=== PATIENT | female | born 1985 | race Caucasian/White ===

== ENCOUNTER 2016-07-22 09:52 | Emergency (ER) | payer OTHER ==
[2016-07-22 10:06] VITALS: BP 130/77; PULSE 60; TEMP 98.2; BMI 32.4
[2016-07-22] MEDS ORDERED: IBUPROFEN 600 MG TABLET (FP) PO ONE ×2 (11:15→11:24)
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
== END 2016-07-22 11:26 | disposition home or self-care (01) ==
LOC: JERFT 09:52
DX: M79.602 Pain in left arm (principal); V53.5XXA Driver of pick-up truck or van injured in collision with car, pick-up truck or van in traffic accident, initial encounter; Y92.414 Local residential or business street as the place of occurrence of the external cause; Y93.89 Activity, other specified; Z98.84 Bariatric surgery status
CPT/HCPCS: 99281-25

== ENCOUNTER 2017-05-06 17:15 | Emergency (ER) | payer OTHER ==
[2017-05-06 17:28] VITALS: BP 141/63; PULSE 67; TEMP 98; BMI 34.1
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
[2017-05-06 18:29] LABS: BASO % 0.6 % (0-2.0); EOS % 0.9 % (0-4.5); HEMATOCRIT 31.2 % (32.4-45.2); HEMOGLOBIN 9.8 GM/dL (10.7-15.3); LYMPH % 35.6 % (8-40); MCH 21.7 pg (25.7-33.7); MCHC 31.3 g/dl (32.0-36.0); MEAN CELL VOLUME 69.5 fl (80-96); MONO % 11.7 % (3.8-10.2); NEUT % 51.2 % (42.8-82.8); PLATELET COUNT 258 K/MM3 (134-434); RDW 17.1 % (11.6-15.6); WHITE BLOOD COUNT 4.9 K/mm3 (4.0-10.0)
[2017-05-06 19:05] LABS: ALBUMIN 4.1 g/dl (3.4-5.0); ALK PHOS 83 U/L (45-117); ANION GAP 7 (8-16); BILIRUBIN,TOTAL 0.4 mg/dL (0.2-1.0); BLOOD UREA NITROGEN 12 mg/dL (7-18); CALCIUM 8.2 mg/dL (8.5-10.1); CHLORIDE 105 mmol/L (98-107); CO2 26 mmol/L (21-32); CREATININE 0.8 mg/dL (0.55-1.02); GLUCOSE,RANDOM 80 mg/dL (74-106); POTASSIUM 3.9 mmol/L (3.5-5.1); SGOT/AST 19 U/L (15-37); SODIUM 138 mmol/L (136-145); TOT PROT 7.6 g/dl (6.4-8.2)
[2017-05-06 19:12] LABS: SGPT/ALT 37 U/L (12-78)
== END 2017-05-06 20:05 | disposition left against medical advice (07) ==
LOC: JER 17:15
DX: R00.2 Palpitations (principal)
CPT/HCPCS: 36415; 80053; 82550; 84484; 84703; 85025; 85379; 99281-25

== ENCOUNTER 2017-09-15 10:03 | Emergency (ER) | payer OTHER ==
[2017-09-15 10:12] VITALS: BP 134/80; PULSE 89; TEMP 99.4; BMI 32.4
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
[2017-09-15 11:10] LABS: EOS % 0.8 % (0-4.5); HEMOGLOBIN 9.9 GM/dl (10.7-15.3)
[2017-09-15 11:13] LABS: BASO % 0.4 % (0-2.0); HEMATOCRIT 30.6 % (32.4-45.2); LYMPH % 20.5 % (8-40); MCH 21.9 pg (25.7-33.7); MCHC 32.2 g/dl (32.0-36.0); MEAN PLT VOLUME 8.3 fl (7.5-11.1); MONO % 7.7 % (3.8-10.2); NEUT % 70.6 % (42.8-82.8); PLATELET COUNT 230 K/MM3 (134-434); RDW 18.9 % (11.6-15.6); WHITE BLOOD COUNT 6.2 K/mm3 (4.0-10.8)
[2017-09-15 11:15] LABS: ADD RBC MORPHOLOGY YES
[2017-09-15 12:25] LABS: ALBUMIN 3.9 g/dl (3.5-5.0); ALK PHOS 65 U/L (32-92); ANION GAP 4 (8-16); BILIRUBIN,TOTAL 0.4 mg/dl (0.2-1.0); BLOOD UREA NITROGEN 16 mg/dl (7-18); CALCIUM 8.7 mg/dl (8.4-10.2); CHLORIDE 106 mmol/L (98-107); CO2 26 mmol/L (22-28); CREATININE 0.8 mg/dl (0.6-1.3); GLUCOSE,RANDOM 97 mg/dl (74-106); SGOT/AST 24 U/L (10-42); SGPT/ALT 22 U/L (10-40); SODIUM 136 mmol/L (136-145); TOT PROT 7.2 g/dl (6.4-8.3)
[2017-09-15 12:35] LABS: ANISOCYTOSIS 2+; OVALOCYTE 1+; TEAR DROP CELLS 1+
--- NOTE | 2017-09-17 13:08 | EKG ---
Test Reason : Blood Pressure : / mmHG Vent. Rate : 088 BPM Atrial Rate : 088 BPM P-R Int : 132 ms QRS Dur : 080 ms QT Int : 352 ms P-R-T Axes : 049 024 047 degrees QTc Int : 425 ms NORMAL SINUS RHYTHM POSSIBLE ANTERIOR INFARCT , AGE UNDETERMINED ABNORMAL ECG NO PREVIOUS ECGS AVAILABLE Confirmed by LILI COOK MD ([id number]) on 09/17/2017 1:08:09 PM Referred By: MD GONSALVES Confirmed By:LILI COOK MD
== END 2017-09-15 12:55 | disposition home or self-care (01) ==
LOC: FER 10:03 → SUPCPDRO 10:03 → FER 12:55
DX: Z04.1 Encounter for examination and observation following transport accident (principal); V47.0XXA Car driver injured in collision with fixed or stationary object in nontraffic accident, initial encounter; Y93.89 Activity, other specified; Y92.410 Unspecified street and highway as the place of occurrence of the external cause; Y99.0 Civilian activity done for income or pay; Z98.84 Bariatric surgery status
CPT/HCPCS: 36415; 80053; 85025; 93005; 99282-25

== ENCOUNTER 2019-06-25 12:36 | Inpatient (IN) | payer OTHER ==
[2019-06-25] MEDS ORDERED: MAG HYDROX/AL HYDROX/SIMETH 30 ML UNIT-DOSE CUP PO PRN (14:47)
[2019-06-25] MEDS ORDERED: ACETAMINOPHEN 325 MG TABLET (FP) PO PRN ×2 (14:47)
[2019-06-25] MEDS ORDERED: MAGNESIUM CITRATE 300 ML BOTTLE PO PRN (14:47)
[2019-06-25] MEDS ORDERED: cloNIDine HCL 0.1 MG TABLET PO PRN (14:47)
[2019-06-25] MEDS ORDERED: MENTHOL/PHENOL 1 EACH UD MM PRN (14:47)
[2019-06-25] MEDS ORDERED: BISMUTH SUBSALICYLATE 262 MG/15 ML BTL PO PRN (14:47)
[2019-06-25] MEDS ORDERED: ONDANSETRON *ODT* 4 MG TABLET SL ONE (14:47)
[2019-06-25] MEDS ORDERED: MAGNESIUM HYDROX 2400MG/30ML ORAL SUSPENSION 30 ML CUP PO PRN (14:47)
[2019-06-25] MEDS ORDERED: METHADONE HCL 10 MG TABLET (FOR DETOX USE ONLY) PO ONE (14:47)
[2019-06-25 15:14] VITALS: BMI 31.6
[2019-06-25] MEDS: PRENATAL VITAMINS W/ FOLIC ACID TABLET (FP) PO SCH (16:15)
[2019-06-25 17:39] LABS: HEMATOCRIT 38.4 % (32.4-45.2); HEMOGLOBIN 12.4 GM/dL (10.7-15.3); MCH 26.9 pg (25.7-33.7); MCHC 32.4 g/dl (32.0-36.0); MEAN CELL VOLUME 83.2 fl (80-96); MEAN PLT VOLUME 9.8 fl (7.5-11.1); PLATELET COUNT 172 K/MM3 (134-434); RBC 4.62 M/mm3 (3.60-5.2); RDW 24.4 % (11.6-15.6); WHITE BLOOD COUNT 3.6 K/mm3 (4.0-10.0)
[2019-06-25 17:49] LABS: ALBUMIN 3.6 g/dl (3.4-5.0); BILIRUBIN,TOTAL 0.4 mg/dL (0.2-1); POTASSIUM 3.9 mmol/L (3.5-5.1)
[2019-06-25] MEDS: hydrOXYzine PAMOATE 25 MG CAPSULE (FP) PO SCH ×2 (18:07→22:12)
[2019-06-25] MEDS: THIAMINE HCL 100 MG TABLET (FP) PO SCH (22:12)
[2019-06-25] MEDS: MELATONIN 5 MG TABLETS PO SCH (22:12)
[2019-06-26] MEDS: hydrOXYzine PAMOATE 25 MG CAPSULE (FP) PO SCH ×5 (06:01→22:12)
[2019-06-26] MEDS ORDERED: METHADONE HCL 10 MG TABLET (FOR DETOX USE ONLY) ONE (09:28)
[2019-06-26] MEDS ORDERED: METHADONE HCL 5 MG TABLET (FOR DETOX USE ONLY) ONE (09:29)
[2019-06-26] MEDS ORDERED: METHADONE (DETOX) 20 MG, METHADONE (DETOX) 5 MG PO ONE (10:00)
[2019-06-26] MEDS: PRENATAL VITAMINS W/ FOLIC ACID TABLET (FP) PO SCH (10:10)
[2019-06-26] MEDS: METHOCARBAMOL 500 MG TABLET PO PRN (13:58)
[2019-06-26] MEDS: MELATONIN 5 MG TABLETS PO SCH (22:12)
[2019-06-26] MEDS: THIAMINE HCL 100 MG TABLET (FP) PO SCH (22:12)
[2019-06-27] MEDS: hydrOXYzine PAMOATE 25 MG CAPSULE (FP) PO SCH ×5 (05:23→22:17)
[2019-06-27] MEDS ORDERED: METHADONE HCL 10 MG TABLET (FOR DETOX USE ONLY) PO ONE (10:00)
[2019-06-27] MEDS: PRENATAL VITAMINS W/ FOLIC ACID TABLET (FP) PO SCH (10:21)
[2019-06-27] MEDS: IBUPROFEN 400 MG TABLET (FP) PO PRN (14:12)
[2019-06-27] MEDS: METHOCARBAMOL 500 MG TABLET PO PRN (14:13)
[2019-06-27] MEDS: THIAMINE HCL 100 MG TABLET (FP) PO SCH (22:17)
[2019-06-27] MEDS: MELATONIN 5 MG TABLETS PO SCH (22:17)
[2019-06-28] MEDS: hydrOXYzine PAMOATE 25 MG CAPSULE (FP) PO SCH ×5 (06:00→21:45)
[2019-06-28] MEDS ORDERED: METHADONE HCL 10 MG TABLET (FOR DETOX USE ONLY) ONE (08:48)
[2019-06-28] MEDS ORDERED: METHADONE HCL 5 MG TABLET (FOR DETOX USE ONLY) ONE (08:48)
[2019-06-28] MEDS ORDERED: METHADONE (DETOX) 10 MG, METHADONE (DETOX) 5 MG PO ONE (10:00)
[2019-06-28] MEDS: PRENATAL VITAMINS W/ FOLIC ACID TABLET (FP) PO SCH (10:12)
[2019-06-28] MEDS: METHOCARBAMOL 500 MG TABLET PO PRN ×2 (10:14→21:46)
[2019-06-28] MEDS ORDERED: LIDOCAINE 5% TOPICAL PATCH TP ONE (11:50)
[2019-06-28] MEDS: MELATONIN 5 MG TABLETS PO SCH (21:45)
[2019-06-28] MEDS: THIAMINE HCL 100 MG TABLET (FP) PO SCH (21:45)
[2019-06-28] MEDS: LIDOCAINE PATCH REMOVAL MC SCH (21:48)
[2019-06-29] MEDS: hydrOXYzine PAMOATE 25 MG CAPSULE (FP) PO SCH ×5 (05:58→21:47)
[2019-06-29] MEDS ORDERED: METHADONE HCL 10 MG TABLET (FOR DETOX USE ONLY) PO ONE (10:00)
[2019-06-29] MEDS: PRENATAL VITAMINS W/ FOLIC ACID TABLET (FP) PO SCH (10:31)
[2019-06-29] MEDS: LIDOCAINE 5% TOPICAL PATCH TP SCH (10:32)
[2019-06-29] MEDS: METHOCARBAMOL 500 MG TABLET PO PRN ×3 (10:32→23:52)
[2019-06-29] MEDS: THIAMINE HCL 100 MG TABLET (FP) PO SCH (21:47)
[2019-06-29] MEDS: MELATONIN 5 MG TABLETS PO SCH (21:47)
[2019-06-29] MEDS: LIDOCAINE PATCH REMOVAL MC SCH (21:53)
[2019-06-30] MEDS ORDERED: METHADONE HCL 5 MG TABLET (FOR DETOX USE ONLY) PO ONE (06:00)
[2019-06-30] MEDS: hydrOXYzine PAMOATE 25 MG CAPSULE (FP) PO SCH ×2 (06:12→09:19)
[2019-06-30] MEDS: METHOCARBAMOL 500 MG TABLET PO PRN (06:14)
[2019-06-30] MEDS: IBUPROFEN 400 MG TABLET (FP) PO PRN (06:15)
[2019-06-30 06:40] VITALS: TEMP 97.9
[2019-06-30] MEDS: LIDOCAINE 5% TOPICAL PATCH TP SCH (09:19)
[2019-06-30] MEDS: PRENATAL VITAMINS W/ FOLIC ACID TABLET (FP) PO SCH (09:19)
[2019-06-30 09:50] VITALS: BP 119/77; PULSE 62
== END 2019-06-30 10:56 | disposition other institution (70) | DRG 773 ==
LOC: YASAS 12:36 → Y3N 15:13 → Y5N 06-28 17:26
PROVIDERS: ADMIT Allergy & Immunology; ATTEND Allergy & Immunology
PROC: HZ2ZZZZ Detoxification Services for Substance Abuse Treatment (ICD-10-PCS; principal; 2019-06-25)
DX: F11.23 Opioid dependence with withdrawal (principal); F12.10 Cannabis abuse, uncomplicated; Z98.84 Bariatric surgery status; Z87.19 Personal history of other diseases of the digestive system; Z86.19 Personal history of other infectious and parasitic diseases; Z87.440 Personal history of urinary (tract) infections; Z98.890 Other specified postprocedural states
CPT/HCPCS: 36415; 80053; 81025; 85027; 86780; Q0162

== ENCOUNTER 2020-10-12 20:49 | Emergency (ER) | payer OTHER ==
[2020-10-12 20:56] VITALS: BP 118/64; PULSE 66; TEMP 98.7; BMI 26.2
== END 2020-10-13 00:15 | disposition home or self-care (01) ==
LOC: JER 20:49 → JERFT 20:49 → JER 10-13 00:15
DX: S01.419A Laceration without foreign body of unspecified cheek and temporomandibular area, initial encounter (principal)
CPT/HCPCS: 99283-25

== ENCOUNTER 2021-06-12 13:23 | Observation (INO) | payer OTHER ==
[2021-06-12] MEDS ORDERED: VANCOMYCIN 1 GM in D5W (PRE-DOCKED) 1,000 MG/250 ML IVPB ONE (15:15)
[2021-06-12] MEDS ORDERED: PIPERACILLIN/TAZOB 3.375 GM 3.375 GM in DEXTROSE 5%-WATER - 50 ML IVPB ONE (15:16)
[2021-06-12] MEDS ORDERED: PIPERACILLIN/TAZOB 3.375 GM 3.375 GM/50 ML BAG IVPB ONE (15:22)
[2021-06-12 16:00] LABS: BASO % 0.4 % (0-2.0); EOS % 0.2 % (0-4.5); HEMATOCRIT 29.2 % (32.4-45.2); LYMPH % 15.1 % (8-40); MCH 21.5 pg (25.7-33.7); MCHC 30.8 g/dl (32.0-36.0); MEAN CELL VOLUME 69.9 fl (80-96); MEAN PLT VOLUME 8.7 fl (7.5-11.1); MONO % 8.4 % (3.8-10.2); NEUT % 75.9 % (42.8-82.8); PLATELET COUNT 203 10^3/uL (134-434); RBC 4.17 M/mm3 (3.60-5.2); RDW 18.5 % (11.6-15.6); WHITE BLOOD COUNT 7.8 K/mm3 (4.0-10.0)
[2021-06-12] MEDS ORDERED: VANCOMYCIN 1 GRAM (PRE-DOCKED) 1,000 MG/250 ML BAG IVPB ONE (16:00)
[2021-06-12 16:13] LABS: EPI CELLS >36 /uL (0-25.1); HCG,QUALITATIVE URINE Negative; HYALINE CASTS 7 /uL (0-3.1); INR 1.16 (0.83-1.09); PH,URINE 5.5 (5.0-8.0); PROTHROMBIN TIME (PATIENT) 13.4 SEC (9.7-13.0); URINE APPEARANCE TURBID; URINE BACTERIA 2127 /uL (0-1359); URINE BILIRUBIN 2+ (NEGATIVE); URINE COLOR DK YELLOW; URINE GLUCOSE (UA) NEGATIVE (NEGATIVE); URINE KETONE TRACE (NEGATIVE); URINE LEUK ESTERASE 2+ (NEGATIVE); URINE NITRITE POSITIVE (NEGATIVE); URINE PROTEIN 2+ (NEGATIVE); URINE WBC 2101 /uL (0-25.8)
[2021-06-12 16:22] LABS: ALBUMIN 3.9 g/dl (3.4-5.0); BLOOD UREA NITROGEN 14.5 mg/dL (7-18); CALCIUM 9.2 mg/dL (8.5-10.1)
[2021-06-12 16:26] LABS: CREATININE 0.8 mg/dL (0.55-1.3)
[2021-06-12 16:27] LABS: BILIRUBIN,TOTAL 0.4 mg/dL (0.2-1); TOT PROT 7.7 g/dl (6.4-8.2)
[2021-06-12 17:48] LABS: ANISOCYTOSIS 1+; MACROCYTOSIS 0
[2021-06-12] MEDS ORDERED: ACETAMINOPHEN 1000 MG/100 ML BAG IVPB ONE (17:59)
[2021-06-12 18:44] LABS: URINE RBC 798 /uL (0-23.9)
[2021-06-12] MEDS ORDERED: ACETAMINOPHEN INJECTION 100 ML IVPB ONE (18:56)
[2021-06-12] MEDS ORDERED: MELATONIN 5 MG TABLETS PO ONE (20:54)
[2021-06-12] MEDS ORDERED: ACETAMINOPHEN 325 MG TABLET (FP) PO PRN (21:00)
[2021-06-12] MEDS ORDERED: MELATONIN 5 MG TABLETS ONE (21:07)
[2021-06-12] MEDS ORDERED: diphenhydrAMINE HCL 25 MG CAPSULE (FP) PO ONE (23:38)
[2021-06-12] MEDS ORDERED: TETANUS AND DIPHTHERIA TOXOID 0.5 ML DISP.SYRIN IM ONE (23:45)
[2021-06-13] MEDS: CEFAZOLIN 2 GM in DEXTROSE 5%-WATER - 50 ML IVPB SCH ×3 (02:13→18:03)
[2021-06-13] MEDS ORDERED: BENZOCAINE/MENTH/CETYLPYRD CL 1 EACH LOZENGE MM PRN (06:21)
[2021-06-13 08:45] LABS: BASO % 0.7 % (0-2.0); EOS % 2.2 % (0-4.5); HEMATOCRIT 25.4 % (32.4-45.2); HEMOGLOBIN 7.7 GM/dL (10.7-15.3); LYMPH % 33.9 % (8-40); MCH 21.2 pg (25.7-33.7); MCHC 30.4 g/dl (32.0-36.0); MEAN CELL VOLUME 69.9 fl (80-96); MEAN PLT VOLUME 8.6 fl (7.5-11.1); MONO % 18.3 % (3.8-10.2); NEUT % 44.9 % (42.8-82.8); PLATELET COUNT 180 10^3/uL (134-434); RBC 3.64 M/mm3 (3.60-5.2); RDW 18.3 % (11.6-15.6); RETICULOCYTES 1.42 % (0.5-1.5); WHITE BLOOD COUNT 4.3 K/mm3 (4.0-10.0)
[2021-06-13 08:55] LABS: CALCIUM 8.4 mg/dL (8.5-10.1)
[2021-06-13 08:56] LABS: ALBUMIN 3.1 g/dl (3.4-5.0); BLOOD UREA NITROGEN 12.4 mg/dL (7-18); MAGNESIUM 2.2 mg/dL (1.8-2.4)
[2021-06-13 08:59] LABS: CREATININE 0.7 mg/dL (0.55-1.3); PHOSPHOROUS 4.5 mg/dL (2.5-4.9)
[2021-06-13 09:01] LABS: BILIRUBIN,TOTAL 0.3 mg/dL (0.2-1); TOT PROT 6.5 g/dl (6.4-8.2)
[2021-06-13] MEDS ORDERED: IRON SUCROSE INJECTION 100 MG in SODIUM CHLORIDE 95 ML IVPB ONE (11:00)
[2021-06-13 16:14] LABS: HEMATOCRIT 30.3 % (32.4-45.2); HEMOGLOBIN 9.3 GM/dL (10.7-15.3); MCH 21.5 pg (25.7-33.7); MCHC 30.6 g/dl (32.0-36.0); MEAN CELL VOLUME 70.2 fl (80-96); MEAN PLT VOLUME 8.3 fl (7.5-11.1); PLATELET COUNT 213 10^3/uL (134-434); RBC 4.32 M/mm3 (3.60-5.2); RDW 18.3 % (11.6-15.6); WHITE BLOOD COUNT 4.5 K/mm3 (4.0-10.0)
[2021-06-14] MEDS: CEFAZOLIN 2 GM in DEXTROSE 5%-WATER - 50 ML IVPB SCH ×3 (00:59→18:39)
[2021-06-14 08:49] LABS: HEMATOCRIT 25.8 % (32.4-45.2); HEMOGLOBIN 7.8 GM/dL (10.7-15.3); MCH 21.4 pg (25.7-33.7); MCHC 30.5 g/dl (32.0-36.0); MEAN CELL VOLUME 70.2 fl (80-96); MEAN PLT VOLUME 8.4 fl (7.5-11.1); PLATELET COUNT 192 10^3/uL (134-434); RBC 3.67 M/mm3 (3.60-5.2); RDW 18.3 % (11.6-15.6); WHITE BLOOD COUNT 4.1 K/mm3 (4.0-10.0)
[2021-06-14] MEDS ORDERED: DOCUSATE SODIUM 100 MG CAPSULE (FP) PO ONE (11:30)
[2021-06-14] MEDS ORDERED: SENNOSIDES 8.6MG TABLET (FP) PO ONE (11:30)
[2021-06-14] MEDS ORDERED: POLYETHYLENE GLYCOL (HEALTHYLAX) 3350 17 GM PACKET PO ONE (11:30)
[2021-06-14 12:09] VITALS: BMI 24.7
[2021-06-14] MEDS ORDERED: IRON SUCROSE INJECTION 100 MG in SODIUM CHLORIDE 95 ML IVPB ONE (12:45)
[2021-06-14] MEDS ORDERED: MELATONIN 5 MG TABLETS PO SCH (22:00)
[2021-06-15] MEDS: CEFAZOLIN 2 GM in DEXTROSE 5%-WATER - 50 ML IVPB SCH ×2 (01:02→09:56)
[2021-06-15] MEDS ORDERED: MULTIVITAMINS (DAILY MVI) TABLET (FP) PO SCH (10:00)
[2021-06-15 11:49] VITALS: BP 106/67; PULSE 79; TEMP 98.3
== END 2021-06-15 14:00 | disposition home or self-care (01) ==
LOC: JER 13:23 → JERBED 18:52 → J8W 21:24
PROVIDERS: ADMIT Hospitalist
PROC: 3E03329 Introduction of Other Anti-infective into Peripheral Vein, Percutaneous Approach (ICD-10-PCS; principal; 2021-06-12)
PROC: 3E033NZ Introduction of Analgesics, Hypnotics, Sedatives into Peripheral Vein, Percutaneous Approach (ICD-10-PCS; 2021-06-12)
PROC: 3E033GC Introduction of Other Therapeutic Substance into Peripheral Vein, Percutaneous Approach (ICD-10-PCS; 2021-06-12)
PROC: 3E0234Z Introduction of Serum, Toxoid and Vaccine into Muscle, Percutaneous Approach (ICD-10-PCS; 2021-06-12)
DX: L03.011 Cellulitis of right finger (principal); U07.1 COVID-19; D64.9 Anemia, unspecified
CPT/HCPCS: 36415; 73130-TC-RT-FY; 80053; 81003; 82272; 82728; 83540; 83550; 83735; 84100; 84703; 85025; 85027; 85045; 85610; 87040; 90471; 96365; 96366; 96367; 96375; 99285-25; C9803-CS; G0378; J1756; U0003; U0005

== ENCOUNTER 2021-11-05 17:18 | Emergency (ER) | payer OTHER ==
[2021-11-05 17:45] VITALS: BP 95/72; PULSE 86; RESP 18; TEMP 100.2; BMI 23.3
== END 2021-11-05 19:01 | disposition home or self-care (01) ==
LOC: JER 17:18
DX: Z20.822 Contact with and (suspected) exposure to COVID-19 (principal)
CPT/HCPCS: 99283-25; C9803-CS; U0003; U0005

== ENCOUNTER 2022-02-04 13:49 | Emergency (ER) | payer OTHER ==
[2022-02-04 14:43] VITALS: BP 127/72; PULSE 85; RESP 16; TEMP 98.4; BMI 24.1
[2022-02-04] MEDS ORDERED: ACETAMINOPHEN 1000 MG/100 ML BAG IVPB ONE (17:34)
[2022-02-04] MEDS ORDERED: LACTATED RINGERS SOLUTION 1000 ML INFUS.BAG IV ONE (17:34)
[2022-02-04] MEDS ORDERED: ACETAMINOPHEN INJECTION 100 ML IVPB ONE (18:06)
[2022-02-04 18:29] LABS: URINE APPEARANCE CLEAR; URINE BILIRUBIN NEGATIVE (NEGATIVE); URINE COLOR YELLOW; URINE GLUCOSE (UA) NEGATIVE (NEGATIVE); URINE KETONE NEGATIVE (NEGATIVE); URINE LEUK ESTERASE NEGATIVE (NEGATIVE); URINE NITRITE NEGATIVE (NEGATIVE); URINE PROTEIN NEGATIVE (NEGATIVE)
[2022-02-04 18:36] LABS: INR 0.98 (0.83-1.09); PROTHROMBIN TIME (PATIENT) 11.3 SEC (9.7-13.0)
[2022-02-04 18:38] LABS: ACTIVATED PTT 30.2 SECONDS (25.2-36.5)
[2022-02-04 18:39] LABS: BASO % 0.6 % (0-2.0); EOS % 1.1 % (0-4.5); HEMATOCRIT 28.1 % (32.4-45.2); HEMOGLOBIN 8.8 GM/dL (10.7-15.3); LYMPH % 27.3 % (8-40); MCHC 31.2 g/dl (32.0-36.0); MEAN CELL VOLUME 73.7 fl (80-96); MEAN PLT VOLUME 8.1 fl (7.5-11.1); MONO % 12.9 % (3.8-10.2); NEUT % 58.1 % (42.8-82.8); PLATELET COUNT 675 10^3/uL (134-434); RBC 3.82 M/mm3 (3.60-5.2); RDW 20.5 % (11.6-15.6)
[2022-02-04 18:51] LABS: ALBUMIN 3.4 g/dl (3.4-5.0); CALCIUM 8.5 mg/dL (8.5-10.1)
[2022-02-04 18:54] LABS: CREATININE 0.9 mg/dL (0.55-1.3)
[2022-02-04 18:56] LABS: BILIRUBIN,TOTAL 0.2 mg/dL (0.2-1); TOT PROT 7.5 g/dl (6.4-8.2)
[2022-02-04 20:07] LABS: ANISOCYTOSIS 1+; MACROCYTOSIS 0; PLATELET ESTIMATE INCREASED
== END 2022-02-04 20:58 | disposition home or self-care (01) ==
LOC: JER 13:49
PROC: 3E0333Z Introduction of Anti-inflammatory into Peripheral Vein, Percutaneous Approach (ICD-10-PCS; principal; 2022-02-04)
DX: R10.11 Right upper quadrant pain (principal)
CPT/HCPCS: 36415; 71045-TC-FY; 76705-TC; 80053; 81003; 83690; 84703; 85025; 85610; 85730; 87086; 93005; 93010; 99285-25

== ENCOUNTER 2022-04-15 20:25 | Inpatient (IN) | payer OTHER ==
[2022-04-15 21:59] VITALS: BMI 27.4
[2022-04-15] MEDS ORDERED: IBUPROFEN 400 MG TABLET (FP) PO PRN (23:48)
[2022-04-15] MEDS ORDERED: POLYETHYLENE GLYCOL (HEALTHYLAX) 3350 17 GM PACKET PO PRN (23:48)
[2022-04-15] MEDS ORDERED: NALOXONE HCL (KLOXXADO) 8 MG SPRAY NS PRN (23:48)
[2022-04-15] MEDS ORDERED: methaDONE HCL 10 MG TABLET (FOR DETOX USE ONLY) PO ONE (23:48)
[2022-04-15] MEDS ORDERED: IBUPROFEN 600 MG TABLET (FP) PO PRN (23:48)
[2022-04-15] MEDS ORDERED: MAGNESIUM HYDROX 2400MG/30ML ORAL SUSPENSION 30 ML CUP PO PRN (23:48)
[2022-04-15] MEDS ORDERED: ACETAMINOPHEN 325 MG TABLET (FP) PO PRN (23:48)
[2022-04-15] MEDS ORDERED: cloNIDine HCL 0.1 MG TABLET PO PRN (23:48)
[2022-04-15] MEDS ORDERED: LOPERAMIDE HCL 2 MG CAPSULE PO PRN (23:48)
[2022-04-15] MEDS ORDERED: MAG HYDROX/AL HYDROX/SIMETH 30 ML UNIT-DOSE CUP PO PRN (23:48)
[2022-04-15] MEDS ORDERED: BISMUTH SUBSALICYLATE 524 MG/30 ML PO PRN (23:48)
[2022-04-15] MEDS ORDERED: DICYCLOMINE HCL 10 MG CAPSULE PO PRN (23:48)
[2022-04-15] MEDS ORDERED: BENZOCAINE/MENTHOL (CHLORASEPTIC ) LOZENGE MM PRN (23:48)
[2022-04-15] MEDS ORDERED: ONDANSETRON *ODT* 4 MG TABLET SL PRN (23:48)
[2022-04-16] MEDS ORDERED: methaDONE HCL 10 MG TABLET PO ONE (02:12)
[2022-04-16] MEDS: METHOCARBAMOL 500 MG TABLET PO PRN ×3 (02:23→22:15)
[2022-04-16] MEDS: ACETAMINOPHEN 325 MG TABLET (FP) PO PRN (02:27)
[2022-04-16] MEDS: PRENATAL VITAMINS W/ FOLIC ACID TABLET (FP) PO SCH (09:49)
[2022-04-16] MEDS: FERROUS SO4 325 MG TABLET (FP) PO SCH (09:53)
[2022-04-16 11:27] LABS: HEMATOCRIT 27.1 % (32.4-45.2); HEMOGLOBIN 8.1 GM/dL (10.7-15.3); MCH 20.6 pg (25.7-33.7); MCHC 29.8 g/dl (32.0-36.0); MEAN CELL VOLUME 69.2 fl (80-96); MEAN PLT VOLUME 9.4 fl (7.5-11.1); PLATELET COUNT 155 10^3/uL (134-434); RBC 3.92 M/mm3 (3.60-5.2); RDW 19.9 % (11.6-15.6); WHITE BLOOD COUNT 4.1 K/mm3 (4.0-10.0)
[2022-04-16 12:49] LABS: ALBUMIN 3.6 g/dl (3.4-5.0); BLOOD UREA NITROGEN 5.1 mg/dL (7-18); CALCIUM 8.5 mg/dL (8.5-10.1)
[2022-04-16 12:52] LABS: CREATININE 0.8 mg/dL (0.55-1.3)
[2022-04-16 12:53] LABS: BILIRUBIN,TOTAL 0.3 mg/dL (0.2-1); TOT PROT 7.4 g/dl (6.4-8.2)
[2022-04-16 13:25] LABS: HIV INTERPRETATION NEGATIVE (NEGATIVE)
[2022-04-16] MEDS: traZODone HCL 50 MG TABLET (FP) PO SCH (22:15)
[2022-04-16] MEDS: MELATONIN 5 MG TABLETS PO SCH (22:15)
[2022-04-16] MEDS: THIAMINE HCL 100 MG TABLET (FP) PO SCH (22:15)
[2022-04-17] MEDS: METHOCARBAMOL 500 MG TABLET PO PRN ×2 (08:32→17:46)
[2022-04-17] MEDS: ACETAMINOPHEN 325 MG TABLET (FP) PO PRN (08:32)
[2022-04-17] MEDS: PRENATAL VITAMINS W/ FOLIC ACID TABLET (FP) PO SCH (09:55)
[2022-04-17] MEDS: FERROUS SO4 325 MG TABLET (FP) PO SCH (09:55)
[2022-04-17] MEDS ORDERED: methaDONE HCL 10 MG TABLET (FOR DETOX USE ONLY) PO ONE (10:00)
[2022-04-17] MEDS: MELATONIN 5 MG TABLETS PO SCH (22:17)
[2022-04-17] MEDS: traZODone HCL 50 MG TABLET (FP) PO SCH (22:17)
[2022-04-17] MEDS: THIAMINE HCL 100 MG TABLET (FP) PO SCH (22:18)
[2022-04-18] MEDS: FERROUS SO4 325 MG TABLET (FP) PO SCH (10:41)
[2022-04-18] MEDS: PRENATAL VITAMINS W/ FOLIC ACID TABLET (FP) PO SCH (10:41)
[2022-04-18] MEDS: MELATONIN 5 MG TABLETS PO SCH (22:29)
[2022-04-18] MEDS: METHOCARBAMOL 500 MG TABLET PO PRN (22:29)
[2022-04-18] MEDS: traZODone HCL 50 MG TABLET (FP) PO SCH (22:29)
[2022-04-18] MEDS: THIAMINE HCL 100 MG TABLET (FP) PO SCH (22:29)
[2022-04-19 06:51] VITALS: RESP 16; TEMP 98
[2022-04-19] MEDS: FERROUS SO4 325 MG TABLET (FP) PO SCH (09:47)
[2022-04-19] MEDS: PRENATAL VITAMINS W/ FOLIC ACID TABLET (FP) PO SCH (09:47)
[2022-04-19 09:52] VITALS: BP 125/64; PULSE 83
[2022-04-19] MEDS ORDERED: methaDONE HCL 10 MG TABLET (FOR DETOX USE ONLY) PO ONE (10:00)
== END 2022-04-19 10:06 | disposition home or self-care (01) | DRG 773 ==
LOC: YASAS 20:25 → Y3N 04-16 01:58
PROVIDERS: ADMIT Allergy & Immunology; ATTEND Family Medicine
PROC: HZ2ZZZZ Detoxification Services for Substance Abuse Treatment (ICD-10-PCS; principal; 2022-04-16)
DX: F11.23 Opioid dependence with withdrawal (principal); F12.20 Cannabis dependence, uncomplicated; F41.9 Anxiety disorder, unspecified; F43.10 Post-traumatic stress disorder, unspecified; D50.8 Other iron deficiency anemias; G47.00 Insomnia, unspecified; K64.9 Unspecified hemorrhoids; M54.50 Low back pain, unspecified; G89.29 Other chronic pain; Z91.410 Personal history of adult physical and sexual abuse; Z98.84 Bariatric surgery status
CPT/HCPCS: 36415; 80053; 81025; 85027; 86780; 87389; 93005; 93010; C9803-CS; U0003; U0005

== ENCOUNTER 2022-08-23 19:10 | Observation (INO) | payer OTHER ==
[2022-08-23 19:23] VITALS: BMI 27.9
[2022-08-23 22:15] LABS: BASO % 0.8 % (0-2.0); EOS % 2.2 % (0-4.5); LYMPH % 53.1 % (8-40); MCHC 29.6 g/dl (32.0-36.0); MEAN CELL VOLUME 71.1 fl (80-96); MEAN PLT VOLUME 6.7 fl (7.5-11.1); NEUT % 30.9 % (42.8-82.8); PLATELET COUNT 222 10^3/uL (134-434); RBC 3.24 M/mm3 (3.60-5.2); RDW 22.5 % (11.6-15.6); WHITE BLOOD COUNT 3.4 K/mm3 (4.0-10.0)
[2022-08-23 22:18] LABS: HEMOGLOBIN 6.8 GM/dL (10.7-15.3)
[2022-08-23 22:21] LABS: INR 1.03 (0.83-1.09); PROTHROMBIN TIME (PATIENT) 11.9 SEC (9.7-13.0)
[2022-08-23 22:33] LABS: CHLORIDE 110 mmol/L (98-107); POTASSIUM 4.1 mmol/L (3.5-5.1); SODIUM 139 mmol/L (136-145)
[2022-08-23 22:35] LABS: ALBUMIN 3.6 g/dl (3.4-5.0); ANION GAP 4 MMOL/L (8-16); CALCIUM 8.4 mg/dL (8.5-10.1); CO2 24 mmol/L (21-32); GLUCOSE,RANDOM 86 mg/dL (74-106)
[2022-08-23 22:36] LABS: BLOOD UREA NITROGEN 9.5 mg/dL (7-18)
[2022-08-23 22:38] LABS: SGPT/ALT 22 U/L (13-61)
[2022-08-23 22:39] LABS: CREATININE 0.8 mg/dL (0.55-1.3); SGOT/AST 18 U/L (15-37)
[2022-08-23 22:40] LABS: BILIRUBIN,TOTAL 0.2 mg/dL (0.2-1); TOT PROT 7.3 g/dl (6.4-8.2)
[2022-08-23 22:41] LABS: ALK PHOS 75 U/L (45-117)
[2022-08-23 22:56] LABS: ANISOCYTOSIS 3+; MACROCYTOSIS 0; TEAR DROP CELLS 1+
[2022-08-24 00:18] LABS: ERYTHROCYTE SEDIMENTATION RATE 36 mm/hr (0-20)
[2022-08-24] MEDS ORDERED: SODIUM CHLORIDE 1,000 ML IV SCH (01:15)
[2022-08-24 01:51] LABS: IRON SERUM 12 ug/dL (50-175)
[2022-08-24 01:53] LABS: TOTAL IRON BINDING CAPACITY 490 ug/dL (250-450)
[2022-08-24 08:27] LABS: INR 1.1 (0.83-1.09); PROTHROMBIN TIME (PATIENT) 12.7 SEC (9.7-13.0)
[2022-08-24 08:35] LABS: CALCIUM 8.2 mg/dL (8.5-10.1)
[2022-08-24 08:36] LABS: ALBUMIN 3.1 g/dl (3.4-5.0); MAGNESIUM 2.3 mg/dL (1.8-2.4)
[2022-08-24 08:41] LABS: CREATININE 0.8 mg/dL (0.55-1.3); PHOSPHOROUS 3.9 mg/dL (2.5-4.9); TOT PROT 6.1 g/dl (6.4-8.2)
[2022-08-24 08:43] LABS: BILIRUBIN,TOTAL 0.5 mg/dL (0.2-1)
[2022-08-24 08:51] LABS: HEMATOCRIT 22.1 % (32.4-45.2); MCHC 30.8 g/dl (32.0-36.0); MEAN CELL VOLUME 71.5 fl (80-96); MEAN PLT VOLUME 7.9 fl (7.5-11.1); PLATELET COUNT 188 10^3/uL (134-434); RDW 22.5 % (11.6-15.6)
[2022-08-24 09:03] LABS: HEMOGLOBIN 6.8 GM/dL (10.7-15.3)
[2022-08-24] MEDS: PANTOPRAZOLE 40 MG TABLET PO SCH (12:03)
[2022-08-24] MEDS: BUPRENORPHINE/NALOXONE 8 MG/2 MG FILM PACKET SL SCH ×2 (12:03→21:25)
[2022-08-24 19:50] VITALS: RESP 16
[2022-08-24 22:05] LABS: PH,URINE 6.5 (5.0-8.0); URINE APPEARANCE CLEAR; URINE BILIRUBIN NEGATIVE (NEGATIVE); URINE COLOR YELLOW; URINE GLUCOSE (UA) NEGATIVE (NEGATIVE); URINE KETONE NEGATIVE (NEGATIVE); URINE LEUK ESTERASE NEGATIVE (NEGATIVE); URINE NITRITE NEGATIVE (NEGATIVE); URINE PROTEIN NEGATIVE (NEGATIVE); URINE UROBILINOGEN 0.2 mg/dL (0.2-1.0)
[2022-08-25] MEDS ORDERED: MELATONIN 5 MG TABLETS PO ONE (00:54)
[2022-08-25] MEDS ORDERED: METHOCARBAMOL 500 MG TABLET PO ONE (00:59)
[2022-08-25 09:37] LABS: BASO % 0.3 % (0-2.0); EOS % 0.1 % (0-4.5); HEMATOCRIT 29.3 % (32.4-45.2); HEMOGLOBIN 9.4 GM/dL (10.7-15.3); LYMPH % 24.3 % (8-40); MCH 23.1 pg (25.7-33.7); MCHC 31.9 g/dl (32.0-36.0); MEAN CELL VOLUME 72.5 fl (80-96); MEAN PLT VOLUME 8.3 fl (7.5-11.1); MONO % 7.4 % (3.8-10.2); NEUT % 67.9 % (42.8-82.8); PLATELET COUNT 189 10^3/uL (134-434); RBC 4.04 M/mm3 (3.60-5.2); RDW 22.9 % (11.6-15.6); WHITE BLOOD COUNT 5.3 K/mm3 (4.0-10.0)
[2022-08-25] MEDS: BUPRENORPHINE/NALOXONE 8 MG/2 MG FILM PACKET SL SCH (10:02)
[2022-08-25] MEDS: PANTOPRAZOLE 40 MG TABLET PO SCH (10:05)
[2022-08-25 10:07] LABS: POTASSIUM 3.9 mmol/L (3.5-5.1)
[2022-08-25 10:09] LABS: ALBUMIN 3.7 g/dl (3.4-5.0); BLOOD UREA NITROGEN 7.8 mg/dL (7-18); CALCIUM 8.7 mg/dL (8.5-10.1)
[2022-08-25 10:12] LABS: CREATININE 0.7 mg/dL (0.55-1.3)
[2022-08-25 10:14] LABS: BILIRUBIN,TOTAL 0.3 mg/dL (0.2-1); TOT PROT 7.6 g/dl (6.4-8.2)
[2022-08-25 11:25] VITALS: BP 170/75; PULSE 92; TEMP 98.5
== END 2022-08-25 13:15 | disposition home or self-care (01) ==
LOC: JER 19:10 → JERBED 22:32 → J5S 08-24 03:36
PROVIDERS: ADMIT Internal Medicine
PROC: 3E0337Z Introduction of Electrolytic and Water Balance Substance into Peripheral Vein, Percutaneous Approach (ICD-10-PCS; principal; 2022-08-23)
DX: R22.43 Localized swelling, mass and lump, lower limb, bilateral (principal); D50.8 Other iron deficiency anemias; Z98.84 Bariatric surgery status; M54.59 Other low back pain; G89.29 Other chronic pain; Z86.16 Personal history of COVID-19; F11.90 Opioid use, unspecified, uncomplicated
CPT/HCPCS: 0241U-QW; 36415; 36430; 73700-TC-RT; 74176-TC; 76830-TC; 80053; 81003; 82550; 82728; 83540; 83550; 83735; 84100; 84466; 84703; 85025; 85027; 85610; 85651; 85730; 86140; 86304; 86850; 86900; 86901; 86922; 87086; 93971-TC; 99285-25; G0378; P9058

== ENCOUNTER 2022-12-05 12:04 | Emergency (ER) | payer OTHER ==
[2022-12-05 12:10] VITALS: BP 125/69; PULSE 64; RESP 18; TEMP 98.5; BMI 29.1
[2022-12-05] MEDS ORDERED: SODIUM CHLORIDE 0.9% 500 ML INFUS.BAG IV ONE (13:07)
[2022-12-05] MEDS ORDERED: cloNIDine HCL 0.1 MG TABLET PO ONE (13:07)
[2022-12-05] MEDS ORDERED: cloNIDine HCL 0.1 MG TABLET ONE (13:17)
[2022-12-05 14:00] LABS: URINE APPEARANCE CLEAR; URINE BILIRUBIN NEGATIVE (NEGATIVE); URINE COLOR YELLOW; URINE GLUCOSE (UA) NEGATIVE (NEGATIVE); URINE KETONE NEGATIVE (NEGATIVE); URINE LEUK ESTERASE NEGATIVE (NEGATIVE); URINE NITRITE NEGATIVE (NEGATIVE); URINE PROTEIN NEGATIVE (NEGATIVE)
[2022-12-05 14:05] LABS: BASO % 0.4 % (0-2.0); HEMATOCRIT 35.1 % (32.4-45.2); HEMOGLOBIN 10.5 GM/dL (10.7-15.3); MCHC 29.9 g/dl (32.0-36.0); MEAN CELL VOLUME 73.7 fl (80-96); MEAN PLT VOLUME 9.4 fl (7.5-11.1); MONO % 5.2 % (3.8-10.2); NEUT % 71.4 % (42.8-82.8); PLATELET COUNT 277 10^3/uL (134-434); RBC 4.76 M/mm3 (3.60-5.2); RDW 19.1 % (11.6-15.6)
[2022-12-05 14:27] LABS: POTASSIUM 4.1 mmol/L (3.5-5.1)
[2022-12-05 14:29] LABS: ALBUMIN 4.3 g/dl (3.4-5.0); ANISOCYTOSIS 3+; BLOOD UREA NITROGEN 3.4 mg/dL (7-18); MACROCYTOSIS 0
[2022-12-05 14:33] LABS: CREATININE 0.9 mg/dL (0.55-1.3)
[2022-12-05 14:34] LABS: BILIRUBIN,TOTAL 0.5 mg/dL (0.2-1); TOT PROT 8.5 g/dl (6.4-8.2)
[2022-12-05 14:49] LABS: CALCIUM 8.9 mg/dL (8.5-10.1)
[2022-12-05] MEDS ORDERED: diazePAM 5 MG TABLET PO ONE (14:52)
[2022-12-05] MEDS ORDERED: diazePAM 5 MG TABLET ONE (15:14)
== END 2022-12-05 15:35 | disposition home or self-care (01) ==
LOC: JER 12:04
DX: F11.93 Opioid use, unspecified with withdrawal (principal)
CPT/HCPCS: 36415; 80053; 81003; 84703; 85025; 99284-25

== ENCOUNTER 2023-04-01 16:44 | Emergency (ER) | payer OTHER ==
[2023-04-01] MEDS ORDERED: NAPROXEN 375 MG TABLET PO ONE (17:32)
[2023-04-01] MEDS ORDERED: NAPROXEN 375 MG TABLET ONE (17:38)
[2023-04-01 17:41] VITALS: BP 141/72; PULSE 73; RESP 17; TEMP 98.4; BMI 25.7
== END 2023-04-01 18:45 | disposition home or self-care (01) ==
LOC: FER 16:44
DX: M25.511 Pain in right shoulder (principal); M25.562 Pain in left knee; V49.50XA Passenger injured in collision with unspecified motor vehicles in traffic accident, initial encounter
CPT/HCPCS: 99283-25

== ENCOUNTER 2023-07-04 14:38 | Inpatient (IN) | payer OTHER ==
[2023-07-04 15:36] VITALS: BMI 27.9
[2023-07-04] MEDS ORDERED: MAG HYDROX/AL HYDROX/SIMETH 30 ML UNIT-DOSE CUP PO PRN (16:40)
[2023-07-04] MEDS ORDERED: LOPERAMIDE HCL 2 MG CAPSULE PO PRN (16:40)
[2023-07-04] MEDS ORDERED: NALOXONE HCL 0.4 MG/ML VIAL IM PRN (16:40)
[2023-07-04] MEDS ORDERED: BISMUTH SUBSALICYLATE 524 MG/30 ML PO PRN (16:40)
[2023-07-04] MEDS ORDERED: BENZONATATE 200 MG CAPSULE PO PRN (16:40)
[2023-07-04] MEDS ORDERED: BENZOCAINE/MENTHOL (CHLORASEPTIC ) LOZENGE MM PRN (16:40)
[2023-07-04] MEDS ORDERED: DICYCLOMINE HCL 10 MG CAPSULE PO PRN (16:40)
[2023-07-04] MEDS ORDERED: ONDANSETRON *ODT* 4 MG TABLET SL PRN (16:40)
[2023-07-04] MEDS ORDERED: NALOXONE HCL (KLOXXADO) 8 MG SPRAY NS PRN (16:40)
[2023-07-04] MEDS ORDERED: POLYETHYLENE GLYCOL (HEALTHYLAX) 3350 17 GM PACKET PO PRN (16:40)
[2023-07-04] MEDS ORDERED: MAGNESIUM HYDROX 2400MG/30ML ORAL SUSPENSION 30 ML CUP PO PRN (16:40)
[2023-07-04] MEDS ORDERED: guaiFENesin 600 MG TABLET.ER (FP) PO PRN (16:40)
[2023-07-04] MEDS ORDERED: methaDONE HCL 10 MG TABLET (FOR DETOX USE ONLY) ONE (17:17)
[2023-07-04] MEDS: methaDONE HCL 10 MG TABLET (FOR DETOX USE ONLY) PO ONE (17:38)
[2023-07-04] MEDS: MELATONIN 5 MG TABLETS PO SCH (22:34)
[2023-07-04] MEDS: IBUPROFEN 600 MG TABLET (FP) PO PRN (22:35)
[2023-07-04] MEDS: THIAMINE HCL 100 MG TABLET (FP) PO SCH (22:36)
[2023-07-05] MEDS: PRENATAL VITAMINS W/ FOLIC ACID TABLET (FP) PO SCH (09:44)
[2023-07-05 14:10] LABS: HEMATOCRIT 26.3 % (32.4-45.2); MCH 21.5 pg (25.7-33.7); MCHC 30.5 g/dl (32.0-36.0); MEAN CELL VOLUME 70.4 fl (80-96); MEAN PLT VOLUME 11.1 fl (7.5-11.1); PLATELET COUNT 111 10^3/uL (134-434); RBC 3.74 M/mm3 (3.60-5.2); RDW 19.8 % (11.6-15.6); WHITE BLOOD COUNT 3.4 K/mm3 (4.0-10.0)
[2023-07-05 14:51] LABS: CHLORIDE 110 mmol/L (98-107); SODIUM 139 mmol/L (136-145)
[2023-07-05 14:53] LABS: ALBUMIN 3.1 g/dl (3.4-5.0); ANION GAP 1 mmol/L (4-13); BLOOD UREA NITROGEN 12.2 mg/dL (7-18); CALCIUM 8.1 mg/dL (8.5-10.1); CO2 27 mmol/L (21-32)
[2023-07-05 14:56] LABS: CREATININE 0.7 mg/dL (0.55-1.3); SGOT/AST 23 U/L (15-37); SGPT/ALT 25 U/L (13-61)
[2023-07-05 14:58] LABS: BILIRUBIN,TOTAL 0.2 mg/dL (0.2-1); TOT PROT 5.9 g/dl (6.4-8.2)
[2023-07-05 14:59] LABS: ALK PHOS 62 U/L (45-117)
[2023-07-05 15:04] LABS: GLUCOSE,RANDOM 80 mg/dL (74-106)
[2023-07-05] MEDS: cloNIDine HCL 0.1 MG TABLET PO PRN (20:41)
[2023-07-05] MEDS: hydrOXYzine PAMOATE 25 MG CAPSULE (FP) PO PRN (20:41)
[2023-07-05] MEDS: METHOCARBAMOL 500 MG TABLET PO PRN (22:48)
[2023-07-05] MEDS: SUVOREXANT 10 MG TABLET PO PRN (22:49)
[2023-07-06] MEDS: methaDONE HCL 10 MG TABLET (FOR DETOX USE ONLY) PO ONE (10:50)
[2023-07-06] MEDS: DOCUSATE SODIUM 100 MG CAPSULE (FP) PO SCH (22:28)
[2023-07-06] MEDS: HYDROCORTISONE 1% TOPICAL CREAM 30 GM TUBE TP SCH (22:29)
[2023-07-06] MEDS: SENNOSIDES 8.6MG TABLET (FP) PO SCH (22:29)
[2023-07-07] MEDS: IBUPROFEN 400 MG TABLET (FP) PO PRN (05:05)
[2023-07-07] MEDS: FERROUS SO4 325 MG TABLET (FP) PO SCH (07:28)
[2023-07-07] MEDS ORDERED: methaDONE HCL 10 MG TABLET PO ONE (10:25)
[2023-07-07] MEDS: diazePAM 5 MG TABLET PO PRN (10:39)
[2023-07-07] MEDS: BENZOCAINE 20 % GEL TUBE MM SCH (13:41)
[2023-07-07] MEDS ORDERED: SUVOREXANT 10 MG TABLET PO PRN (22:00)
[2023-07-07] MEDS: GABAPENTIN 100 MG CAPSULE PO ONE (22:09)
[2023-07-07] MEDS: SUVOREXANT 15 MG TABLET PO PRN (22:11)
[2023-07-08] MEDS: methaDONE HCL 10 MG TABLET (FOR DETOX USE ONLY) PO ONE (10:22)
[2023-07-09] MEDS: ACETAMINOPHEN 325 MG TABLET (FP) PO PRN (06:14)
[2023-07-09 09:53] VITALS: BP 143/87; PULSE 94; RESP 18; TEMP 97.6
== END 2023-07-09 10:02 | disposition home or self-care (01) | DRG 773 ==
LOC: YASAS 14:38 → Y6N 16:51
PROVIDERS: ADMIT Allergy & Immunology; ATTEND Surgery
PROC: HZ2ZZZZ Detoxification Services for Substance Abuse Treatment (ICD-10-PCS; principal; 2023-07-04)
DX: F11.23 Opioid dependence with withdrawal (principal); F12.20 Cannabis dependence, uncomplicated; F19.282 Other psychoactive substance dependence with psychoactive substance-induced sleep disorder; F41.9 Anxiety disorder, unspecified; D50.8 Other iron deficiency anemias; Z86.59 Personal history of other mental and behavioral disorders; Z98.84 Bariatric surgery status
CPT/HCPCS: 36415; 80053; 80305; 80307; 81025; 85027; 86780; 93005; 93010

== ENCOUNTER 2023-12-15 18:18 | Emergency (ER) | payer OTHER ==
[2023-12-15 18:31] VITALS: BP 142/84; PULSE 80; RESP 16; TEMP 98; BMI 25.7
[2023-12-15] MEDS ORDERED: ACETAMINOPHEN 325 MG TABLET (FP) ONE (19:49)
[2023-12-15] MEDS: ACETAMINOPHEN 325 MG TABLET (FP) PO ONE (19:51)
[2023-12-15 20:56] LABS: HIV INTERPRETATION NEGATIVE (NEGATIVE)
== END 2023-12-15 19:55 | disposition home or self-care (01) ==
LOC: FER 18:18
PROC: 2W3FX1Z Immobilization of Left Hand using Splint (ICD-10-PCS; principal; 2023-12-15)
DX: S52.502A Unspecified fracture of the lower end of left radius, initial encounter for closed fracture (principal); W01.0XXA Fall on same level from slipping, tripping and stumbling without subsequent striking against object, initial encounter
CPT/HCPCS: 36415; 73110-TC-RT-FY; 73130-TC-RT-FY; 86803; 87389; 99284-25